=== PATIENT | male | born 1970 ===

== ENCOUNTER 2016-12-15 02:31 | Emergency (ER) | payer OTHER ==
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
[2016-12-15 12:29] VITALS: BP 127/90; PULSE 71; RESP 16; TEMP 98.1; O2SAT 98
--- NOTE | 2016-12-15 13:55 | CARD ---
APPROVED REPORT EKG Measurement Heart [id number] <Conclusion> Normal sinus rhythm Normal ECG
== END 2016-12-15 05:38 | disposition home or self-care (01) ==
LOC: H.ER 02:31
DX: S09.90XA Unspecified injury of head, initial encounter (principal); S13.4XXA Sprain of ligaments of cervical spine, initial encounter; S20.219A Contusion of unspecified front wall of thorax, initial encounter; V89.2XXA Person injured in unspecified motor-vehicle accident, traffic, initial encounter; Y92.410 Unspecified street and highway as the place of occurrence of the external cause; E78.5 Hyperlipidemia, unspecified; Z88.0 Allergy status to penicillin